=== PATIENT | male | born 1985 | race Caucasian/White ===

== ENCOUNTER 2018-04-13 11:59 | Inpatient (IN) | payer SELFPAY ==
[~2018-04-13] VITALS: Ht 165.1 cm; Wt 81.6 kg
[2018-04-13] MEDS ORDERED: SODIUM CHLORIDE 0.9% 1,000 ML IV ONE (12:21)
[2018-04-13] MEDS ORDERED: ONDANSETRON HCL 4MG/2ML INJ IV STA (12:21)
[2018-04-13] MEDS ORDERED: MORPHINE SULFATE 4 MG/ML CPJ (NOT FOR IM USE) IV STA (12:21)
[2018-04-13] MEDS ORDERED: PANTOPRAZOLE 80 MG in SODIUM CHLORIDE 0.9% 100 ML IV SCH ×2 (12:30→12:45)
[2018-04-13] MEDS ORDERED: PANTOPRAZOLE SODIUM 40 MG/VIAL IV ONE (12:30)
[2018-04-13 12:40] LABS: BASOPHILS % 0.9 % (0.0-2.0); EOSINOPHILS % 2.5 % (0.0-5.0); HEMATOCRIT. 45.7 % (42.0-52.0); HEMOGLOBIN. 15.5 g/dL (14.0-18.0); LYMPHOCYTES % 18.7 % (20.0-50.0); MEAN CORPUSCULAR HEMOGLOBIN 28.8 pg (28.0-32.0); MEAN CORPUSCULAR VOLUME 85.1 fL (80.0-94.0); MEAN PLATELET VOLUME 7.3 fl (7.4-10.4); MONOCYTES % 7.4 % (2.0-8.0); NEUTROPHILS % 70.5 % (40.0-76.0); PLATELET 257 x1000/uL (130-400); RED BLOOD CELL COUNT 5.37 mill/uL (4.7-6.1); RED CELL DISTRIBUTION WIDTH 13.4 % (11.6-14.6)
[2018-04-13 12:45] LABS: CHLORIDE 105 mEq/L (98-107)
[2018-04-13 12:49] LABS: ETHANOL BLOOD < 10 mg/dL
[2018-04-13 12:50] LABS: INR 1.1; PROTHROMBIN TIME 10.7 sec (9.1-11.1)
[2018-04-13] MEDS ORDERED: ONDANSETRON HCL 4MG/2ML INJ IV PRN ×2 (14:30→14:45)
[2018-04-13] MEDS ORDERED: IOHEXOL-300 100 ML BOTTLE ONE (14:34)
[2018-04-13] MEDS ORDERED: GUAIFENESIN 200MG/10ML SUGAR FREE UDC PO PRN (14:45)
[2018-04-13] MEDS ORDERED: ACETAMINOPHEN 325MG TABLET PO PRN (14:45)
[2018-04-13] MEDS ORDERED: MORPHINE SULFATE 4 MG/ML CPJ (NOT FOR IM USE) IV PRN (14:45)
[2018-04-13] MEDS ORDERED: DOCUSATE SODIUM 100MG CAPSULE PO PRN (14:45)
[2018-04-13] MEDS ORDERED: IPRATROPIUM/ALBUTEROL 0.5-3(2.5)MG/3ML NEB INH PRN (14:45)
[2018-04-13] MEDS ORDERED: NA PHOS,M-B/NA PHOS,DI-BA ENEMA 118ML PR PRN (14:45)
[2018-04-13] MEDS ORDERED: LORAZEPAM 2MG/ML CPJ IV PRN (14:45)
[2018-04-13] MEDS ORDERED: MAGNESIUM/ALUMINUM HYDROXIDE/SIMETHICONE 30ML UDC PO PRN (14:45)
[2018-04-13] MEDS ORDERED: DIPHENHYDRAMINE 50MG/ML VIAL IV PRN (14:45)
[2018-04-13] MEDS ORDERED: CLONIDINE 0.1MG TABLET PO PRN (14:45)
[2018-04-13] MEDS ORDERED: HYDROCODONE/ACETAMINOPHEN 5/325MG TABLET PO PRN (14:45)
[2018-04-13 17:10] VITALS: BP 133/86
[2018-04-13 17:12] VITALS: BP 133/86
[2018-04-13 17:35] LABS: CHLORIDE 106 mEq/L (98-107)
[2018-04-13] MEDS: SODIUM CHLORIDE 0.45% 1,000 ML IV SCH (18:01)
[2018-04-13 20:00] VITALS: BP 117/70
[2018-04-14] VITALS: BP 109/56
[2018-04-14 04:00] VITALS: BP 118/61
[2018-04-14 08:00] VITALS: BP 113/60
[2018-04-14] MEDS: PANTOPRAZOLE SODIUM 40 MG/VIAL IV SCH (08:59)
[2018-04-14 09:28] LABS: BASOPHILS % 0.7 % (0.0-2.0); EOSINOPHILS % 5.1 % (0.0-5.0); HEMOGLOBIN. 15.1 g/dL (14.0-18.0); LYMPHOCYTES % 25.1 % (20.0-50.0); MEAN CORPUSCULAR HEMOGLOBIN 28.9 pg (28.0-32.0); MEAN CORPUSCULAR VOLUME 86.1 fL (80.0-94.0); MEAN PLATELET VOLUME 7.7 fl (7.4-10.4); MONOCYTES % 7.5 % (2.0-8.0); NEUTROPHILS % 61.6 % (40.0-76.0); PLATELET 225 x1000/uL (130-400); RED BLOOD CELL COUNT 5.23 mill/uL (4.7-6.1); RED CELL DISTRIBUTION WIDTH 13.5 % (11.6-14.6)
[2018-04-14 09:43] LABS: CHLORIDE 104 mEq/L (98-107)
[2018-04-14 09:55] LABS: HDL CHOLESTEROL 36 mg/dL (40-59)
[2018-04-14 10:02] LABS: LDL CHOLESTEROL 79 mg/dL (5-100)
[2018-04-14 12:00] VITALS: BP 108/63
[2018-04-14 16:00] VITALS: BP 104/65
[2018-04-14] MEDS: SODIUM CHLORIDE 0.45% 1,000 ML IV SCH (18:47)
[2018-04-14 20:00] VITALS: BP 103/60
[2018-04-15 04:00] VITALS: BP 110/74
[2018-04-15 08:00] VITALS: BP 103/62
[2018-04-15] MEDS: PANTOPRAZOLE SODIUM 40 MG/VIAL IV SCH (09:00)
[2018-04-15 11:32] VITALS: BP 101/96
[2018-04-15 12:00] VITALS: BP 111/74
== END 2018-04-15 13:00 | disposition home or self-care (01) | DRG 241 ==
LOC: ER 11:59 → ENRESERV 15:51 → 7WST 17:06
PROVIDERS: ADMIT Internal Medicine; ATTEND Internal Medicine
DX: K29.71 Gastritis, unspecified, with bleeding (principal); D64.9 Anemia, unspecified; E86.0 Dehydration; R07.89 Other chest pain
CPT/HCPCS: 36415; 71045; 74177; 80048; 80053; 80061; 83690; 84484; 85025; 85610; 93005; 96361; 96374; 96375; 99285; C9113; G0482; J2270; J2405; J7030; J7050; Q9967